=== PATIENT | female | born 1995 | race Caucasian/White ===

== ENCOUNTER 2019-03-27 04:49 | Observation (INO) ==
[2019-03-27 05:03] VITALS: BMI 23.1
--- NOTE | 2019-03-27 05:08 | ED.ABDFE ---
HPI - HPI Comment HPI Comment: 24 y/o with persistent rlq pain x one day; no f/c/n/v but she has had several loose, watery stools after taking laxative yesterday; no rash; last period two weeks ago; she is on bcp. - Nurses notes reviewed Nurses Notes Review: Yes - Source History Provided: Patient - Time seen Time Seen by Provider: 03/27/19 05:02 ROS - Review of Systems Constitutional: No Symptoms Reported Eyes: No Symptoms Reported ENTM: No Symptoms Reported Respiratoy: No Symptoms Reported Cardiovascular: No Symptoms Reported Gastrointestinal/Abdominal: See HPI, Abdominal Pain Genitourinary: No Symptoms Reported Neurological: No Symptoms Reported Musculoskeletal: No Symptoms Reported Integumentary: No Symptoms Reported Hematologic/Lymphatic: No Symptoms Reported Endocrine: No Symptoms Reported Psychiatric: No Symptoms Reported PE - General Limitations: No Limitations General Appearance: Alert, In No Apparent Distress - Head Head Exam: Normal Inspection, Atraumatic - Eyes Eye exam: Normal Appearance, PERRL - ENT ENT Exam: Normal Exam - Neck Neck Exam: Normal Inspection, Full ROM - Chest Chest Inspection: Normal Inspection - Respiratory Respiratory Exam: Normal Lung Sounds Bilat Respiratory Exam: Bilateral Clear to Auscultation - Cardiovascular Cardiovascular Exam: Normal Rhythm, Tachycardia - Abdominal Exam Abdominal Exam: Normal Inspection, Normal Bowel Sounds, Soft Abdominal Tenderness: RLQ - Extremeties Extremities Exam: Normal Inspection, Full ROM - Neurologic Neurological Exam: Alert, Oriented X3 - Psychiatric Psychiatric Exam: Normal Affect, Normal Mood - Skin Skin Exam: Warm, Dry - Vital Signs Vitals: Temperature 98.2 F Pulse Rate 130 Respiratory Rate 15 Blood Pressure [Left Arm] 151/63 Blood Pressure 110/67 O2 Sat by Pulse Oximetry 100 ROR - Labs Reviewed Laboratory Results Reviewed?: Yes Result Diagrams: 03/27/19 05:18 03/27/19 05:18 - Other Results Comments: [address] Pederson - Labs Reviewed Laboratory: WBC 20.8 X10^3/uL (3.6-10.0) H 03/27/19 05:18 RBC 4.56 X10^6/uL (3.5-5.4) 03/27/19 05:18 Hgb 13.5 g/dL (12.0-16.0) 03/27/19 05:18 Hct 38.9 % (36.0-47.0) 03/27/19 05:18 MCV 85.3 fL (80.0-100.0) 03/27/19 05:18 MCH 29.5 pg (27.0-34.0) 03/27/19 05:18 MCHC 34.6 g/dL (33.0-35.0) 03/27/19 05:18 RDW 13.6 % (11.6-16.5) 03/27/19 05:18 Plt Count 366 X10^3/uL (150.0-450.0) 03/27/19 05:18 MPV 7.9 fL (7.4-11.0) 03/27/19 05:18 Neut % (Auto) 85.8 % (42.0-75.0) H 03/27/19 05:18 Lymph % (Auto) 6.6 % (21.0-51.0) L 03/27/19 05:18 [place] % (Auto) 7.3 % (0.0-13.0) 03/27/19 05:18 Eos % (Auto) 0.0 % (0.9-2.9) L 03/27/19 05:18 Baso % (Auto) 0.3 % (0.2-1.0) 03/27/19 05:18 Neut # (Auto) 17.8 x10^3/uL (2.2-4.8) H 03/27/19 05:18 Lymph # (Auto) 1.4 X10^3/uL (1.3-2.9) 03/27/19 05:18 [place] # (Auto) 1.5 x10^3/uL (0.3-0.8) H 03/27/19 05:18 Eos # (Auto) 0.0 x10^3/uL (0.0-0.2) 03/27/19 05:18 Baso # (Auto) 0.1 X10^3/uL (0.0-0.1) 03/27/19 05:18 Absolute Nucleated RBC 0.0 /100WBC 03/27/19 05:18 Sodium 139 mmol/L (136-145) 03/27/19 05:18 Corrected Sodium 140 mmol/L (136-145) 03/27/19 05:18 Potassium 3.5 mmol/L (3.5-5.1) 03/27/19 05:18 Chloride 102 mmol/L (98-107) 03/27/19 05:18 Carbon Dioxide 23.5 mmol/L (21-32) 03/27/19 05:18 BUN 5 mg/dL (7-18) L 03/27/19 05:18 Creatinine 0.86 mg/dL (0.55-1.02) 03/27/19 05:18 Est GFR (MDRD) Af Amer > 60 (>60) 03/27/19 05:18 Est GFR (MDRD) Non-Af > 60 (>60) 03/27/19 05:18 Glucose 133 mg/dL (65-99) H 03/27/19 05:18 Calcium 9.2 mg/dL (8.5-10.1) 03/27/19 05:18 Corrected Calcium TNP 03/27/19 05:18 Total Bilirubin 1.20 mg/dL (0.2-1.0) H 03/27/19 05:18 AST 10 Units/L (15-37) L 03/27/19 05:18 ALT 14 Units/L (12-78) 03/27/19 05:18 Alkaline Phosphatase 76 Units/L (46-116) 03/27/19 05:18 Total Protein 8.6 g/dL (6.4-8.2) H 03/27/19 05:18 Albumin 4.2 g/dL (3.4-5.0) 03/27/19 05:18 Globulin 4.4 g/dL (2.5-4.5) 03/27/19 05:18 Albumin/Globulin Ratio 1.0 Ratio (1.1-2.1) L 03/27/19 05:18 HCG, Quant < 1 mIU/mL (0-6) 03/27/19 05:18 Specimen Type Clean catch urine 03/27/19 05:15 Urine Color Yellow (YELLOW) 03/27/19 05:15 Urine Appearance Clear (CLEAR) 03/27/19 05:15 Urine pH 7.0 (5.0 - 8.0) 03/27/19 05:15 Ur Specific [place] 1.010 (1.000-1.030) 03/27/19 05:15 Urine Protein Negative (NEGATIVE) 03/27/19 05:15 Urine Glucose (UA) Negative (NEGATIVE) 03/27/19 05:15 Urine Ketones Negative (NEGATIVE) 03/27/19 05:15 Urine Occult Blood Negative (NEGATIVE) 03/27/19 05:15 Urine Nitrite Negative (NEGATIVE) 03/27/19 05:15 Urine Bilirubin Negative (NEGATIVE) 03/27/19 05:15 Urine Urobilinogen Normal (NORMAL) 03/27/19 05:15 Ur Leukocyte Esterase Negative (NEGATIVE) 03/27/19 05:15 Opioid - Opioid Risk Tool Total: 0 Total Score Risk Category: Low Risk - Discharge Plan Condition: Stable - Follow ups/Referrals Follow ups/Referrals: HARVINDER CASTRO [Primary Care Provider] - 3 days - Instructions
[2019-03-27 05:30] LABS: BASOPHILS # (AUTO) 0.1 X10^3/uL (0.0-0.1); BASOPHILS % (AUTO) 0.3 % (0.2-1.0); HEMATOCRIT 38.9 % (36.0-47.0); HEMOGLOBIN 13.5 g/dL (12.0-16.0); LYMPHOCYTES # (AUTO) 1.4 X10^3/uL (1.3-2.9); LYMPHOCYTES % (AUTO) 6.6 % (21.0-51.0); MEAN CORPUSCULAR HEMOGLOBIN 29.5 pg (27.0-34.0); MEAN CORPUSCULAR HGB CONC 34.6 g/dL (33.0-35.0); MEAN CORPUSCULAR VOLUME 85.3 fL (80.0-100.0); MEAN PLATELET VOLUME 7.9 fL (7.4-11.0); MONOCYTES # (AUTO) 1.5 x10^3/uL (0.3-0.8); MONOCYTES % (AUTO) 7.3 % (0.0-13.0); NEUTROPHILS # (AUTO) 17.8 x10^3/uL (2.2-4.8); NEUTROPHILS % (AUTO) 85.8 % (42.0-75.0); PLATELET COUNT 366 X10^3/uL (150.0-450.0); RED BLOOD COUNT 4.56 X10^6/uL (3.5-5.4); RED CELL DISTRIBUTION WIDTH 13.6 % (11.6-16.5); WHITE BLOOD COUNT 20.8 X10^3/uL (3.6-10.0)
[2019-03-27 05:30] LABS: BILIRUBIN,URINE NEGATIVE (NEGATIVE); BLOOD/HEMOGLOBIN,URINE NEGATIVE (NEGATIVE); GLUCOSE, URINE NEGATIVE (NEGATIVE); KETONES,URINE NEGATIVE (NEGATIVE); LEUKOCYTE ESTERASE ,URINE NEGATIVE (NEGATIVE); NITRITES,URINE NEGATIVE (NEGATIVE); PROTEIN,URINE NEGATIVE (NEGATIVE); UROBILINOGEN,URINE NORMAL (NORMAL)
[2019-03-27 05:32] LABS: APPEARANCE,URINE CLEAR (CLEAR); COLOR,URINE YELLOW (YELLOW)
[2019-03-27] MEDS ORDERED: ZOFRAN INJ 4 MG VIAL IVP ONE (05:40)
[2019-03-27] MEDS ORDERED: ZOFRAN INJ 4 MG VIAL ONE ×2 (05:40→15:10)
[2019-03-27 05:41] LABS: ALANINE AMINOTRANSFERASE 14 Units/L (12-78); ALBUMIN 4.2 g/dL (3.4-5.0); ALKALINE PHOSPHATASE 76 Units/L (46-116); ASPARTATE AMINO TRANSFERASE 10 Units/L (15-37); BLOOD UREA NITROGEN 5 mg/dL (7-18); CALCIUM 9.2 mg/dL (8.5-10.1); CARBON DIOXIDE 23.5 mmol/L (21-32); CHLORIDE 102 mmol/L (98-107); COR NA(FOR HYPERGLY) 140 mmol/L (136-145); CREATININE 0.86 mg/dL (0.55-1.02); SODIUM 139 mmol/L (136-145); TOTAL PROTEIN 8.6 g/dL (6.4-8.2); eGFR NON BLACK RACES > 60 (>60)
[2019-03-27 05:50] LABS: HCG,QUANTITATIVE < 1 mIU/mL (0-6)
[2019-03-27] MEDS ORDERED: NS 1000 ML 1,000 ML IV SCH (06:00)
[2019-03-27] MEDS ORDERED: ZOSYN VIAL 3.375 GRAMS 3.375 G in NS 100 ML IV + SPIKE MINIBAG* 100 ML IV ONE (07:49)
[2019-03-27] MEDS ORDERED: ZOSYN VIAL 3.375 GRAMS IV ONE (08:31)
[2019-03-27] MEDS ORDERED: NS 100 ML IV + SPIKE MINIBAG* 100 ML IV ONE (08:31)
--- NOTE | 2019-03-27 08:36 | CT ---
HISTORY: Right lower quadrant pain, leukocytosis Study: CT abdomen pelvis with contrast Comparison: None Technique: Axial post-contrast images with coronal and sagittal reformats. Dose reduction procedures were used with mA/kv adjusted for body size. Findings: The lung bases are clear. The liver, spleen, adrenal glands, and pancreas are within normal limits. No opaque stones are visible within the gallbladder. The kidneys are unobstructed and without stones or masses. No ureteral calculi are identified. The abdominal aorta is normal. There is no enlarged intraperitoneal or retroperitoneal lymphadenopathy however there are multiple nonenlarged right-sided para-aortic lymph nodes and multiple nonenlarged lymph nodes in the cecal mesentery. The appendix is mildly distended maximum width 11 mm. There is wall enhancement. There is no definite periappendiceal inflammation at this time. However, early appendicitis is certainly possible. Clinical, laboratory correlation is recommended as is surgical evaluation. There are no findings suggestive of enteritis, diverticulitis, or colitis. Examination of the pelvis demonstrated no evidence for pelvic masses, pelvic fluid, or pelvic lymphadenopathy. No bladder abnormality is identified. No lytic or blastic skeletal lesions of significance are identified. IMPRESSION: Mildly distended appendix demonstrating some wall enhancement but no significant periappendiceal inflammation as yet. Early appendicitis is still possible. Clinical and laboratory correlation is recommended as is surgical evaluation. Reported By:
[2019-03-27] MEDS ORDERED: ZOFRAN INJ 4 MG VIAL IVP PRN ×2 (09:19→11:33)
[2019-03-27] MEDS ORDERED: MORPHINE SULFATE INJ 2 MG INJ IVP PRN ×2 (09:19→14:09)
[2019-03-27] MEDS ORDERED: NS IRRIGATION 3000 ML ONE (09:20)
[2019-03-27] MEDS: ZOSYN VIAL 3.375 GRAMS 3.375 G in NS 100 ML IV + SPIKE MINIBAG* 100 ML IV SCH ×3 (09:40→23:00)
[2019-03-27] MEDS ORDERED: DECADRON INJ ONE ×2 (09:54→15:10)
[2019-03-27] MEDS ORDERED: FENTANYL INJ 100 mcg ONE (09:54)
[2019-03-27] MEDS ORDERED: ZEMURON ONE ×2 (09:55→15:10)
[2019-03-27] MEDS: LR 1000 ML IV 1,000 ML IV SCH ×2 (11:00→13:32)
[2019-03-27] MEDS ORDERED: BACTROBAN TOPICAL OINT ONE (11:09)
[2019-03-27] MEDS ORDERED: DEMEROL INJ IVP PRN (11:24)
[2019-03-27] MEDS ORDERED: PHENERGAN INJ 25 MG IM PRN (11:33)
[2019-03-27] MEDS ORDERED: REGLAN INJ 10 MG VIAL IVP PRN (11:33)
[2019-03-27] MEDS ORDERED: BENADRYL INJ 50 MG VIAL IVP PRN (11:33)
[2019-03-27] MEDS ORDERED: DILAUDID INJ IVP PRN (11:33)
[2019-03-27] MEDS ORDERED: D5 1/2 NS 1000 ML 1,000 ML IV SCH (12:00)
[2019-03-27] MEDS ORDERED: ULTANE GAS IN ONE (15:10)
[2019-03-27] MEDS ORDERED: XYLOCAINE 1 % (PLAIN) ONE (15:10)
[2019-03-27] MEDS ORDERED: VERSED ONE (15:10)
[2019-03-27] MEDS ORDERED: ROBINUL ONE (15:10)
[2019-03-27] MEDS ORDERED: DIPRIVAN VIAL ONE (15:10)
[2019-03-27] MEDS ORDERED: TORADOL 30 MG VIAL ONE (15:10)
[2019-03-27] MEDS ORDERED: NEOSTIGMINE INJ ONE (15:10)
[2019-03-28] MEDS: LR 1000 ML IV 1,000 ML IV SCH ×2 (01:00→10:06)
[2019-03-28 05:44] LABS: BASOPHILS % (AUTO) 0.2 % (0.2-1.0); HEMATOCRIT 30.3 % (36.0-47.0); LYMPHOCYTES # (AUTO) 1.4 X10^3/uL (1.3-2.9); LYMPHOCYTES % (AUTO) 13.9 % (21.0-51.0); MEAN CORPUSCULAR HEMOGLOBIN 30.4 pg (27.0-34.0); MEAN CORPUSCULAR HGB CONC 35.2 g/dL (33.0-35.0); MEAN CORPUSCULAR VOLUME 86.4 fL (80.0-100.0); MEAN PLATELET VOLUME 8.2 fL (7.4-11.0); MONOCYTES # (AUTO) 0.5 x10^3/uL (0.3-0.8); MONOCYTES % (AUTO) 5.3 % (0.0-13.0); NEUTROPHILS # (AUTO) 8.2 x10^3/uL (2.2-4.8); NEUTROPHILS % (AUTO) 80.6 % (42.0-75.0); PLATELET COUNT 237 X10^3/uL (150.0-450.0); RED BLOOD COUNT 3.51 X10^6/uL (3.5-5.4)
[2019-03-28 05:51] LABS: HEMOGLOBIN 10.7 g/dL (12.0-16.0); WHITE BLOOD COUNT 10.2 X10^3/uL (3.6-10.0)
[2019-03-28 05:53] LABS: BLOOD UREA NITROGEN 6 mg/dL (7-18); CALCIUM 8.5 mg/dL (8.5-10.1); CARBON DIOXIDE 24.1 mmol/L (21-32); CHLORIDE 107 mmol/L (98-107); CREATININE 0.67 mg/dL (0.55-1.02); SODIUM 141 mmol/L (136-145); eGFR NON BLACK RACES > 60 (>60)
[2019-03-28] MEDS: ZOSYN VIAL 3.375 GRAMS 3.375 G in NS 100 ML IV + SPIKE MINIBAG* 100 ML IV SCH (06:22)
[2019-03-28] MEDS ORDERED: LEVAQUIN PREMIX IV 500 MG 500 MG/100 ML BAG IV ONE (09:28)
[2019-03-28 09:54] VITALS: BP 127/60
== END 2019-03-28 11:15 | disposition home or self-care (01) ==
LOC: MED/SURG 04:49 → ER 04:49 → MED/SURG 09:44
PROVIDERS: ADMIT Surgery; ATTEND Internal Medicine
PROC: APPYLAP (ICD-10-PCS; 2019-03-27 13:00)
DX: R94.31 Abnormal electrocardiogram [ECG] [EKG]; K35.80 Unspecified acute appendicitis; R10.31 Right lower quadrant pain
CPT/HCPCS: 36415; 74177; 80048; 80053; 81003; 82248; 83605; 84702; 85025; 87040; 93005; 96360; 96361; 96365; 96367; 96374; 96375; 99284; A4222; G0378; J1100; J1885; J1956; J2250; J2405; J2543; J2704; J2710; J3010; J3490; J7030; J7050; J7120

== ENCOUNTER 2020-09-10 06:28 | Inpatient (IN) ==
[2020-09-10] MEDS ORDERED: PITOCIN ONE (06:53)
[2020-09-10] MEDS ORDERED: D5 1/2 NS 1000 ML 1,000 ML IV ONE (06:54)
[2020-09-10] MEDS ORDERED: BETADINE SOLN ONE (06:54)
[2020-09-10] MEDS ORDERED: D5LR 1L W PITOCIN 10 UNITS/L 10 UNITS/1,000 ML BAG IV ONE (06:55)
[2020-09-10] MEDS ORDERED: D5 1/2 NS 1L W PITOCIN 20 UNITS/L 20 UNITS/1,000 ML BAG IV ONE (06:55)
[2020-09-10] MEDS ORDERED: PHENERGAN INJ 25 MG IM PRN ×2 (07:04→14:36)
[2020-09-10] MEDS ORDERED: REGLAN INJ 10 MG VIAL IVP PRN (07:04)
[2020-09-10] MEDS ORDERED: D5LR 1L W PITOCIN 10 UNITS/L 10 UNITS/1,000 ML BAG IV PRN (07:04)
[2020-09-10] MEDS ORDERED: PITOCIN IVP ONE (07:04)
[2020-09-10] MEDS ORDERED: STADOL INJ IVP PRN (07:07)
[2020-09-10 07:35] LABS: BASOPHILS % (AUTO) 0.4 % (0.2-1.0); BLOOD UREA NITROGEN 5 mg/dL (7-18); CALCIUM 8.7 mg/dL (8.5-10.1); CARBON DIOXIDE 21.6 mmol/L (21-32); CHLORIDE 106 mmol/L (98-107); CREATININE 0.66 mg/dL (0.55-1.02); EOSINOPHILS % (AUTO) 0.1 % (0.9-2.9); HEMATOCRIT 32.5 % (36.0-47.0); HEMOGLOBIN 10.6 g/dL (12.0-16.0); LYMPHOCYTES # (AUTO) 1.6 X10^3/uL (1.3-2.9); LYMPHOCYTES % (AUTO) 19.2 % (21.0-51.0); MEAN CORPUSCULAR HEMOGLOBIN 27.4 pg (27.0-34.0); MEAN CORPUSCULAR HGB CONC 32.5 g/dL (33.0-35.0); MEAN CORPUSCULAR VOLUME 84.1 fL (80.0-100.0); MEAN PLATELET VOLUME 10.7 fL (7.4-11.0); MONOCYTES # (AUTO) 0.4 x10^3/uL (0.3-0.8); NEUTROPHILS # (AUTO) 6.3 x10^3/uL (2.2-4.8); NEUTROPHILS % (AUTO) 75.3 % (42.0-75.0); PLATELET COUNT 192 X10^3/uL (150.0-450.0); RED BLOOD COUNT 3.86 X10^6/uL (3.5-5.4); SODIUM 141 mmol/L (136-145); WHITE BLOOD COUNT 8.4 X10^3/uL (3.6-10.0); eGFR NON BLACK RACES > 60 (>60)
[2020-09-10 07:51] LABS: GIANT PLATELET FEW; PLATELET MORPHOLOGY COMMENT ABNORMAL (NORMAL)
[2020-09-10] MEDS ORDERED: D5 1/2 NS 1000 ML 1,000 ML IV SCH (08:00)
[2020-09-10] MEDS ORDERED: STADOL INJ ONE (10:56)
[2020-09-10] MEDS ORDERED: XYLOCAINE 1 % (PLAIN) ONE ×2 (12:54→13:02)
[2020-09-10] MEDS ORDERED: BETADINE SURGICAL SCRUB ONE (13:06)
[2020-09-10] MEDS ORDERED: HEMABATE IM ONE (14:11)
[2020-09-10] MEDS ORDERED: MOTRIN TAB 800 MG PO PRN (14:36)
[2020-09-10] MEDS ORDERED: D5 1/2 NS 1000 ML 1,000 ML with PITOCIN 20 UNITS IV SCH ×2 (15:00)
[2020-09-10] MEDS ORDERED: MILK OF MAGNESIA PO PRN (15:53)
[2020-09-10] MEDS ORDERED: DERMOPLAST PAIN RELIEF SPRAY TOP PRN (15:53)
[2020-09-11 05:55] LABS: HEMATOCRIT 27.2 % (36.0-47.0)
--- NOTE | 2020-09-11 08:34 | NOTE.PROOB ---
progress Note OB- Subjective Data Subjective: No complaints, decreased lochia. Tolerating regular diet. No N/V. Ambulating well. No dysuria. Objective Data Result Diagrams: 09/11/20 05:20 09/10/20 07:15 Objective Data: CV= RRR no MRG Lungs=CTA Bilaterally Abd=(+) BS, soft, NTND, Fundus firm/NT/ at 3 cm below umbilicus. Ext=no edema, NT, no cords Plan (1) Gestational [-induced] hypertension without significant proteinuria, complicating childbirth: Plan: routine PP care and go home today. She is well.
[2020-09-11] MEDS ORDERED: PRENATAL PLUS PO SCH (09:00)
[2020-09-11] MEDS ORDERED: ADACEL or BOOSTRIX TDaP VACCINE IM ONE (14:08)
[2020-09-11 17:22] VITALS: BP 127/82
== END 2020-09-11 16:10 | disposition home or self-care (01) | DRG 807 ==
LOC: LD 06:28 → MED/SURG 15:54
PROVIDERS: ADMIT Obstetrics & Gynecology; ATTEND Obstetrics & Gynecology
DX: Z3A.38 38 weeks gestation of pregnancy; Z23 Encounter for immunization; O13.3 Gestational [pregnancy-induced] hypertension without significant proteinuria, third trimester; O70.1 Second degree perineal laceration during delivery; Z37.0 Single live birth

== ENCOUNTER 2024-07-22 02:41 | Inpatient (IN) ==
[2024-07-22] MEDS ORDERED: ZOFRAN INJ 4 MG VIAL IVP PRN (02:53)
[2024-07-22] MEDS ORDERED: REGLAN INJ 10 MG VIAL IVP PRN (02:53)
[2024-07-22] MEDS: D5 1/2 NS 1,000 ML 1,000 ML IV SCH (02:55)
[2024-07-22 03:14] LABS: BASOPHILS # (AUTO) 0.1 X10^3/uL (0.0-0.1); BASOPHILS % (AUTO) 0.7 % (0.2-1.0); EOSINOPHILS % (AUTO) 0.1 % (0.9-2.9); HEMATOCRIT 35.3 % (36.0-47.0); HEMOGLOBIN 11.9 g/dL (12.0-16.0); LYMPHOCYTES # (AUTO) 2.9 X10^3/uL (1.3-2.9); LYMPHOCYTES % (AUTO) 24.5 % (21.0-51.0); MEAN CORPUSCULAR HEMOGLOBIN 29.7 pg (27.0-34.0); MEAN CORPUSCULAR HGB CONC 33.7 g/dL (33.0-35.0); MEAN CORPUSCULAR VOLUME 88.2 fL (80.0-100.0); MEAN PLATELET VOLUME 9.5 fL (7.4-11.0); MONOCYTES # (AUTO) 0.6 x10^3/uL (0.3-0.8); MONOCYTES % (AUTO) 5.5 % (0.0-13.0); NEUTROPHILS # (AUTO) 8.1 x10^3/uL (2.2-4.8); NEUTROPHILS % (AUTO) 69.2 % (42.0-75.0); PLATELET COUNT 243 X10^3/uL (150.0-450.0); RED CELL DISTRIBUTION WIDTH 15.2 % (11.6-16.5); WHITE BLOOD COUNT 11.6 X10^3/uL (3.6-10.0)
[2024-07-22 03:24] LABS: INR 0.96 (0.8-1.3)
[2024-07-22 03:27] LABS: ALANINE AMINOTRANSFERASE 15 Units/L (12-78); ASPARTATE AMINO TRANSFERASE 18 Units/L (15-37); BLOOD UREA NITROGEN 6 mg/dL (7-18); CALCIUM 8.9 mg/dL (8.5-10.1); CARBON DIOXIDE 22.4 mmol/L (21-32); CHLORIDE 104 mmol/L (98-107); COR NA(FOR HYPERGLY) 139 mmol/L (136-145); CREATININE 0.68 mg/dL (0.55-1.02); GLUCOSE 112 mg/dL (65-99); LACTATE DEHYDROGENASE 323 Units/L (81-234); POTASSIUM 3.6 mmol/L (3.5-5.1); SODIUM 139 mmol/L (136-145); URIC ACID 4.9 mg/dL (2.6-6.0); eGFR NON BLACK RACES > 60 (>60)
[2024-07-22] MEDS: PERCOCET TAB 5/325 MG ONE (03:39)
[2024-07-22] MEDS: D5 1/2 NS 1,000 ML 1,000 ML IV ONE (03:40)
[2024-07-22] MEDS: PITOCIN ONE (03:41)
[2024-07-22] MEDS: OXYTOCIN 20 UNIT/1,000 ML-NS 20 UNIT/1,000 ML PLAST..BAG IV PRN (03:45)
[2024-07-22] MEDS: NUBAIN INJ 20 MG AMP IVP PRN (04:36)
[2024-07-22 05:31] LABS: BILIRUBIN,URINE NEGATIVE (NEGATIVE); BLOOD/HEMOGLOBIN,URINE 3+ (NEGATIVE); GLUCOSE, URINE NEGATIVE (NEGATIVE); KETONES,URINE NEGATIVE (NEGATIVE); LEUKOCYTE ESTERASE ,URINE NEGATIVE (NEGATIVE); NITRITES,URINE NEGATIVE (NEGATIVE); PROTEIN,URINE NEGATIVE (NEGATIVE); UROBILINOGEN,URINE NORMAL (NORMAL)
[2024-07-22 05:37] LABS: APPEARANCE,URINE CLEAR (CLEAR); COLOR,URINE YELLOW (YELLOW)
[2024-07-22 05:40] LABS: RBC,URINE 0-2 /HPF (0-3); SQUAMOUS EPITHELIAL CELL,UR FEW /HPF (NEGATIVE)
[2024-07-22 05:41] LABS: BACTERIA,URINE NEGATIVE /HPF (NEGATIVE)
[2024-07-22] MEDS: BETADINE SOLN ONE (06:05)
[2024-07-22] MEDS: PITOCIN IVP ONE (06:17)
[2024-07-22] MEDS ORDERED: MOTRIN TAB 800 MG PO PRN ×2 (06:38→07:31)
--- NOTE | 2024-07-22 06:38 | DR.OB ---
OB QUICK NOTE Assessment/Plan (1) Active labor at term: Assessment/Plan: Delivery Note COMMODITY MANAGER 07/22/24 at 6:14am Patient complete and pushing. Infant and mother stable. Head delivered over intact perineum. Nose and mouth bulb suctioned. No nuchal cord. Body delivered over intact perineum. Cord clamped x 2 and cut. handed to attendant. Cord sent for gases. Placenta delivered spontaneously / intact / 3 vessel cord. No CVX tears. A second degree midline incision noted and repaired with 0-vicryl in usual fashion. Viable female delivered by , VTX/OA, wt=8'7" and 8/9, stable to NBN. Mother stable to NBN. TBN=[id number].
[2024-07-22] MEDS: NUBAIN INJ 10 MG AMP ONE (07:02)
[2024-07-22] MEDS: XYLOCAINE 1 % (PLAIN) ONE (07:03)
[2024-07-22] MEDS: OXYTOCIN 20 UNIT/1,000 ML-NS 20 UNIT/1,000 ML PLAST..BAG IV SCH (07:05)
[2024-07-22] MEDS ORDERED: AMBIEN PO PRN (07:31)
[2024-07-22] MEDS ORDERED: MILK OF MAGNESIA PO PRN (07:31)
[2024-07-22] MEDS: PRENATAL PLUS PO SCH (08:48)
[2024-07-22] MEDS: ADACEL or BOOSTRIX TDaP VACCINE IM ONE (08:50)
[2024-07-22] MEDS: DERMOPLAST PAIN RELIEF SPRAY TOP PRN (08:51)
[2024-07-22 12:49] VITALS: RESP 18
[2024-07-22 23:56] VITALS: O2SAT 98
[2024-07-23 04:55] LABS: HEMATOCRIT 33.7 % (36.0-47.0); HEMOGLOBIN 11.2 g/dL (12.0-16.0)
[2024-07-23 08:40] VITALS: BP 112/59; PULSE 97; TEMP 97.8
== END 2024-07-23 11:55 | disposition home or self-care (01) | DRG 807 ==
LOC: LD 02:41 → MED/SURG 08:07
PROVIDERS: ADMIT Specialist; ATTEND Specialist
DX: O70.1 Second degree perineal laceration during delivery; Z37.0 Single live birth; Z3A.39 39 weeks gestation of pregnancy; O13.3 Gestational [pregnancy-induced] hypertension without significant proteinuria, third trimester